=== PATIENT | female | born 1975 | race African-American/Black ===

== ENCOUNTER 2017-06-10 11:35 | Emergency (ER) | payer MEDICAID, OTHER ==
[~2017-06-10] VITALS: Ht 162.6 cm; Wt 59.0 kg
--- NOTE | 2017-06-10 12:45 | Emergency Room Report ---
History of Present Illness General Chief Complaint: Pain Source: Patient Present Illness HPI 42 bilateral knee pain 7/10 in severity x 6 months , no appreciable trauma, exacerbated with bending. PT. denies clicking. pt. denies swelling, erythema, open lesions, hx of gout, hx of arthritis, hx of previous knee injuries. pt states pain has been progressive and becomes more constant. pt .reports feeling "stiff in the knees" pt. states knee flexion exacerbated her pain, no exacerbation with extension. denies joint instability. Denies numbness tingling or loss of sensation or gross motor movements of the extremities, incontinence of bowel or bladder. Denies CP, Palpitations, LOC, AMS, dizziness, Changes in Vision, Sensation, paresthesias, or a sudden severe headache. Allergies: Coded Allergies: No Known Allergies (Unverified , 06/10/17) Patient History Past Medical History: see triage record Past Surgical History: none Pertinent Family History: none Now: No Immunizations: UTD Reviewed Nursing Documentation: PMH: Agreed, PSxH: Agreed Nursing Documentation-PMH Past Medical History: No Stated History Review of Systems All Other Systems: negative except mentioned in HPI Physical Exam Vital Signs Date Time Temp Pulse Resp B/P (MAP) Pulse Ox O2 Delivery O2 Flow Rate FiO2 06/10/17 11:40 98.1 72 20 127/84 99 Room Air Sp02 EP Interpretation: reviewed, normal General Appearance: no apparent distress, alert, GCS 15, non-toxic Head: normocephalic, atraumatic Eyes: bilateral eye normal inspection, bilateral eye PERRL ENT: hearing grossly normal, normal voice Neck: full range of motion Respiratory: lungs clear, normal breath sounds, speaking full sentences Cardiovascular #1: regular rate, rhythm Cardiovascular #2: 2+ dorsalis pedis (R), 2+ dorsalis pedis (L) Musculoskeletal: back normal, gait/station normal, normal range of motion, no calf tenderness, tender - mild ttp, to the bilateral knees posteriorly, no palpable pulsatile mass, no bruises, no ligamental laxity, FROM no clicking, negative anterior and posterior drawer signs, no erythema, no swelling , no increased temperature to palpation. Neurologic: alert, oriented x3, responsive, motor strength/tone normal, sensory intact, normal gait, speech normal Psychiatric: judgement/insight normal, memory normal, mood/affect normal Skin: normal color, no rash, warm/dry, well hydrated Medical Decision Making PA Attestation Dr. Tomlinson is my supervising Physician whom patient management has been discussed with. Diagnostic Impression: Primary Impression: Bilateral knee pain Qualified Codes: M25.561 - Pain in right knee; M25.562 - Pain in left knee; G89.29 - Other chronic pain ER Course 40 bilateral knee pain 7/10 in severity x 6 months , no appreciable trauma, exacerbated with bending. PT. denies clicking. pt. denies swelling, erythema, open lesions, hx of gout, hx of arthritis, hx of previous knee injuries. pt states pain has been progressive and becomes more constant. pt .reports feeling "stiff in the knees" pt. states knee flexion exacerbated her pain, no exacerbation with extension. denies joint instability. Denies numbness tingling or loss of sensation or gross motor movements of the extremities, incontinence of bowel or bladder. Denies CP, Palpitations, LOC, AMS, dizziness, Changes in Vision, Sensation, paresthesias, or a sudden severe headache. Ddx considered but are not limited to Fracture, dislocation, contusion, Sprain/ Strain/Spasm, septic joint, gout, arthritis, popliteal aneurysm, bakers cysts' Vital signs: are WNL, pt. is afebrile H&PE are most consistent with musculoskeletal injury will perform imaging to r/ o fractures/dislocations. ORDERS: - X-ray Right Knee 3 views - negative for fx, Dislocation, or significant soft tissue injury, there is noted to be calcification bilaterally in the posterior knee, no obvious acute avulsion. -- per preliminary read in ED by Dr. Tomlinson - interpretation is scribed by PA. - X-ray Right Knee 3 views - negative for fx, Dislocation, or significant soft tissue injury, there is noted to be calcification bilaterally in the posterior knee, no obvious acute avulsion. --per preliminary read in ED by Dr. Tomlinson - interpretation is scribed by PA. ED INTERVENTIONS: - D/w pt. the results of imaging, and recommended follow up with PCP for management or further evaluation of her chronic symptoms. DISCHARGE: At this time pt. is stable for d/c to home. Will provide printed patient care instructions, and any necessary prescriptions. Care plan and follow up instructions have been discussed with the patient prior to discharge. Last Vital Signs Date Time Temp Pulse Resp B/P (MAP) Pulse Ox O2 Delivery O2 Flow Rate FiO2 06/10/17 11:40 98.1 72 20 127/84 99 Room Air Disposition: HOME, SELF-CARE Condition: Stable Scripts Ibuprofen* (MOTRIN*) 600 Mg Tablet 600 MG ORAL THREE TIMES A DAY for 10 Days, #30 TAB 0 Refills Prov: Maria Elena Barrera 06/10/17 Departure Forms: Return to Work Return to Work Date: Jun 12, 2017 Work Restrictions: No Heavy Lifting, No Prolonged Standing Other Restrictions: light duty x 1 week, no prolonged standing or walking. Return to Full Activity: Jun 19, 2017 Additional Instructions: Take medications as directed. Follow up with a Primary Care Provider in 3-5 days, even if your symptoms have resolved. ORTHOPEDIC FOLLOW UP and Possible MRI if symptoms continue. --Please review list of primary care clinics, if you do not already have a primary care provider Return sooner to ED if new symptoms occur, or current symptoms become worse. - Please note that this Emergency Department Report was dictated using [employer] software, occasionally this can lead to erroneous entry secondary to interpretation by the dictation equipment. Maria Elena Barrera Jun 10, 2017 12:45
[2017-06-10] MEDS ORDERED: IBUPROFEN600 MG ORAL (13:35)
--- NOTE | 2017-06-10 13:53 | Diagnostic Imaging Report ---
Indication: Pain 3 views of the right knee were obtained. Findings: Alignment of the knee is normal. There is no fracture or evidence of a joint effusion. There is right base a small osteochondroma projecting off the metaphysis just above the lateral femoral condyle. This could be relevant and significant clinically if there is impingement of adjacent soft tissue structures. Please correlate clinically. Impression: Broad-based osteochondroma metaphyseal region of the distal femur. Negative exam otherwise
[2017-06-10 13:57] VITALS: BP 111/78
--- NOTE | 2017-06-10 14:01 | Diagnostic Imaging Report ---
Indication: Pain 3 views of the left knee were obtained. Findings: There is no acute fracture or malalignment or evidence of a joint effusion. The lateral aspect of the distal femur demonstrates slight expansion and a undulating cortical contour above the femoral condyle. Similar finding noted in the proximal portion of the fibula below the knee joint. These could represent unusual broad-based osteochondromata. A similar single lesion was noted in the right knee as well. Impression: Unusual appearing, suspected osteochondromas involving the distal femur and proximal fibula. Single lesion also seen in the right knee. Osteochondromas are usually sclerotic and comment incidental bone findings. However, multiple osteochondromata suggests a genetic disorder, such as multiple hereditary exostosis.
== END 2017-06-10 13:57 | disposition home or self-care (01) ==
LOC: EMR 12:55
DX: M25.562 Pain in left knee (principal); M25.561 Pain in right knee; M25.862 Other specified joint disorders, left knee
CPT/HCPCS: 99283; 99284

== ENCOUNTER 2020-09-28 20:37 | Emergency (ER) | payer MEDICAID, OTHER ==
[~2020-09-28] VITALS: Ht 162.6 cm; Wt 72.6 kg
[~2020-09-28 20:37] MED LIST: IBUPROFEN600 MG ORAL
[2020-09-28 22:40] VITALS: BP 133/91
--- NOTE | 2020-09-28 22:40 | NUR ---
Nurse Note: Pt arrived c/o LT lower and uppper toothache for few days. Pt stated swelling. No follow up appt with dentist.
[2020-09-28] MEDS ORDERED: ACETAMINOPHEN-1 EAC1 ORAL (22:43)
[2020-09-28] MEDS ORDERED: AMOXICILLIN500 MG ORAL (22:43)
[2020-09-28 22:50] VITALS: BP 133/91
--- NOTE | 2020-09-28 22:50 | NUR ---
ED Nurse Note: Pt cleared by health care Provider for discharge. DC instructions/prescription was given and explained to pt and verbalized understanding of teachings. Instructed pt follow up with PCP within 3-7 days. All medical deviecs such as ID band removed. Pt is AAO x4, ambulatory and left with all personal belongings.
--- NOTE | 2020-09-29 02:18 | Emergency Room Report ---
History of Present Illness General Chief Complaint: Toothache Source: Patient Present Illness HPI 45-year-old female presents with tooth pain. Has been having tooth pain for the last few weeks. Getting progressively worse. Has a crown. Unable to see a dentist. Pain is throbbing, 7 out of 10, nonradiating. No other aggravating relieving factors. Denies any other associated symptoms Allergies: Coded Allergies: No Known Allergies (Unverified , 06/10/17) COVID-19 Screening Contact w/high risk pt: No Experienced COVID-19 symptoms?: No COVID-19 Testing performed [employer]: No Patient History Past Medical History: none Past Surgical History: none Pertinent Family History: none Social History: Denies: smoking, alcohol use, drug use Last Menstrual Period: 08/2020 Now: No Immunizations: UTD Reviewed Nursing Documentation: PMH: Agreed; PSxH: Agreed Nursing Documentation-PMH Past Medical History: No Stated History Review of Systems All Other Systems: negative except mentioned in HPI Physical Exam Vital Signs Date Time Temp Pulse Resp B/P (MAP) Pulse Ox O2 Delivery O2 Flow Rate FiO2 09/28/20 22:30 97.5 76 16 133/91 (105) 97 Room Air Sp02 EP Interpretation: reviewed, normal General Appearance: no apparent distress, alert, GCS 15, non-toxic Head: normocephalic, atraumatic Eyes: bilateral eye normal inspection, bilateral eye PERRL ENT: hearing grossly normal, normal pharynx, no angioedema, normal voice, other - pain to tooth in L lower jaw. no erythema/induration Neck: full range of motion, supple/symm/no masses Respiratory: chest non-tender, lungs clear, normal breath sounds, speaking full sentences Cardiovascular #1: regular rate, rhythm, no edema Cardiovascular #2: 2+ carotid (R), 2+ carotid (L), 2+ radial (R), 2+ radial (L), 2+ dorsalis pedis (R), 2+ dorsalis pedis (L) Gastrointestinal: normal bowel sounds, non tender, soft, non-distended, no guarding, no rebound Rectal: deferred Genitourinary: normal inspection, no CVA tenderness Musculoskeletal: back normal, normal range of motion, gait/station normal, non- tender Neurologic: alert, motor strength/tone normal, oriented x3, sensory intact, responsive, speech normal Psychiatric: judgement/insight normal, memory normal, mood/affect normal, no suicidal/homicidal ideation Reflexes: 3+ bicep (R), 3+ bicep (L), 3+ tricep (R), 3+ tricep (L), 3+ knee (R), 3+ knee (L) Skin: no rash Lymphatic: no adenopathy Medical Decision Making Diagnostic Impression: Primary Impression: Toothache ER Course 45-year-old female presents ED complaining of tooth pain. Cracked tooth, dental abscess, cavity Patient placed on stretcher. After initial history, physical exam reveals a female in mild distress. Pain to the tooth in the left lower jaw with filling noted. No surrounding erythema or induration Discussed findings with patient. Will prescribe antibiotics and pain meds. Will provide referrals to dentistry. Diagnosis- toothache Stable and discharged to home prescription for tylenol #3 and amoxicillin. In structed to see dentist as a walk-in this week. Return to ED if symptoms recur or worse Last Vital Signs Date Time Temp Pulse Resp B/P (MAP) Pulse Ox O2 Delivery O2 Flow Rate FiO2 09/28/20 22:50 97.5 78 16 133/91 97 Room Air Status: improved Disposition: HOME, SELF-CARE Condition: Stable Scripts Amoxicillin* (AMOXIL*) 500 Mg Capsule 500 MG ORAL THREE TIMES A DAY, #21 CAP Prov: Jaime Jimenez MD 09/28/20 Acetaminophen With Codeine (T#3) (TYLENOL #3 TAB*) Y Tab 1 TAB ORAL Q8H PRN for For Pain, #12 TAB Prov: Jaime Jimenez MD 09/28/20 Referrals: [facility],REFERRING (PCP) [facility](age 2-12) - Orthodontic Clinic - Hours: Wed,Wed,, 8:15am and 1pm (new patient screening), . 1pm. Emergency clinic Wednesday - Wednesday 8:30am and 1pm, . 1pm. *Call to check if clinic is open; No appointment necessary for the first visit (new patient screening), Arrive 15-30 minutes early as it is first come, first serve. [facility] INFO: New Patient Screening: Wed- 8am-1pm Wed- 9am -5pm and Wed 2pm-5pm Jaime Jimenez MD Sep 29, 2020 02:18
== END 2020-09-28 22:50 | disposition home or self-care (01) ==
LOC: EMR 22:08
DX: K08.89 Other specified disorders of teeth and supporting structures (principal)
CPT/HCPCS: 99282